=== PATIENT | female | born 1950 | race Caucasian/White ===

== ENCOUNTER 2017-07-04 09:51 | Day surgery (SDC) | payer MEDICARE ==
[~2017-07-04 09:51] MED LIST: ACETAMINOPHEN 1,000 MG/100 ML BTL IV ONE; CELECOXIB 100 MG CAPSULE PO ONE; FAMOTIDINE 20MG TABLET PO ONE; MECLIZINE 25 MG TABLET PO ONE; METOCLOPRAMIDE 10 MG TABLET PO ONE; VANCOMYCIN HCL 1,000 MG in DEXTROSE 5 % IN WATER 250 ML IVPB ONE
[2017-07-04] MEDS ORDERED: FENTANYL PF 100MCG/2ML VIAL IV ONE (09:52)
[2017-07-04] MEDS ORDERED: TRANEXAMIC ACID 1,000 MG/10 ML ML IV ONE (09:52)
[2017-07-04] MEDS ORDERED: LIDOCAINE 2% MDV (20MG/ML) 20ML VIAL IV ONE (09:52)
[2017-07-04] MEDS ORDERED: BUPIVACAINE LIPOSOME 266MG/20ML VIAL IV ONE (09:52)
[2017-07-04] MEDS ORDERED: EPHEDRINE SULFATE 50 MG/ML ML IV ONE (09:52)
[2017-07-04] MEDS ORDERED: DIPHENHYDRAMINE HCL IV 50 MG/ML VIAL IVP ONE (09:52)
[2017-07-04] MEDS ORDERED: PROPOFOL 10 MG/ML VIAL IV ONE (09:52)
[2017-07-04] MEDS ORDERED: VANCOMYCIN HCL 1 GM VIAL IVPB ONE ×2 (09:52)
[2017-07-04] MEDS ORDERED: MIDAZOLAM HCL 2MG/2ML VIAL IV ONE (09:52)
[2017-07-04] MEDS ORDERED: BUPIVACAINE 0.5% W/EPI MPF 30 ML VIAL IVP ONE (09:52)
[2017-07-04 10:37] LABS: ABO GROUP A; ANTIBODY SCREEN NEGATIVE (NEGATIVE); RH TYPE POSITIVE
[2017-07-04] MEDS ORDERED: METOCLOPRAMIDE HCL 10 MG/2 ML VIAL IVP PRN (12:21)
[2017-07-04] MEDS ORDERED: ZOLPIDEM TARTRATE 5 MG TABLET PO PRN (12:21)
[2017-07-04] MEDS ORDERED: AL HYDROX/MAG HYDROX 30ML UD PO PRN (12:21)
[2017-07-04] MEDS ORDERED: BISACODYL 10 MG SUPP RC PRN (12:21)
[2017-07-04] MEDS ORDERED: HYDROCODONE/APAP 7.5/325MG TABLET PO PRN ×2 (12:21)
[2017-07-04] MEDS ORDERED: HYDROCODONE/APAP 5/325MG TABLET PO PRN (12:21)
[2017-07-04] MEDS ORDERED: MORPHINE SULFATE 5 MG/ML PFS IVP PRN ×4 (12:21)
[2017-07-04] MEDS ORDERED: KETOROLAC 30 MG/ML VIAL IVP PRN ×2 (12:21)
[2017-07-04] MEDS ORDERED: ACETAMINOPHEN W/ CODEINE 300MG/30MG TABLET PO PRN ×2 (12:21)
[2017-07-04] MEDS ORDERED: HYDROMORPHONE HCL 1 MG/ML SYRINGE IM PRN (12:21)
[2017-07-04] MEDS ORDERED: ACETAMINOPHEN 325 MG TAB PO PRN (12:21)
[2017-07-04] MEDS ORDERED: ONDANSETRON HCL IV 4 MG/2 ML VIAL IVP PRN (12:21)
[2017-07-04] MEDS ORDERED: MAGNESIUM HYDROXIDE 30 ML UDC PO PRN (12:21)
[2017-07-04] MEDS ORDERED: TRAMADOL HCL 50 MG TABLET PO PRN ×2 (12:21)
[2017-07-04] MEDS ORDERED: ACETAMINOPHEN W/ CODEINE 300MG/60MG TABLET PO PRN ×2 (12:21)
[2017-07-04] MEDS ORDERED: HYDROMORPHONE HCL 2 MG/ML VIAL IM PRN (12:21)
[2017-07-04] MEDS ORDERED: PROMETHAZINE HCL 12.5 MG in 0.9 % SODIUM CHLORIDE 100ML 50 ML IVPB PRN (12:21)
[2017-07-04] MEDS ORDERED: DIPHENHYDRAMINE HCL 25 MG CAPSULE PO PRN (12:21)
[2017-07-04] MEDS ORDERED: NALOXONE 0.4 MG/1 ML VIAL IVP PRN (12:21)
[2017-07-04 12:35] LABS: URINE APPEARANCE CLEAR; URINE BILIRUBIN SMALL (NEGATIVE); URINE BLOOD NEGATIVE (NEGATIVE); URINE COLOR YELLOW; URINE GLUCOSE (UA) NEGATIVE (NEGATIVE); URINE KETONE TRACE (NEGATIVE); URINE LEUKOCYTE ESTERASE NEGATIVE (NEGATIVE); URINE NITRITE NEGATIVE (NEGATIVE); URINE PROTEIN TRACE (NEGATIVE); URINE UROBILINOGEN 0.2 E.U./dL (0.20 - 1.00)
[2017-07-04] MEDS: VANCOMYCIN HCL 1,000 MG in DEXTROSE 5 % IN WATER 250 ML IVPB SCH ×4 (14:50→23:07)
[2017-07-04] MEDS: DEXTROSE 5 % AND 0.9 % NACL 1,000 ML IV PRN ×2 (15:00→23:08)
--- NOTE | 2017-07-04 16:37 | Rehab Evaluation ---
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 PMH - GI Hx Gastrointestinal Disorders Yes Hx Gastroesophageal Reflux Yes Hx Weight Loss/Weight Gain Yes: 90 lb wt loss over last 1 1/2 years Comment: diet and exercise PMH - Hx Genitourinary Disorders No Comment: S/P menopause partial yst PMH - Endocrine Hx Endocrine Disorders No PMH - Musculoskeletal Hx Musculoskeletal Disorders Yes Hx Arthritis Yes: RA and OA PMH - Psych Hx Psychiatric Problems Yes Hx Depression Yes: 3 yrs ago with of spouse PMH - Hematology/Oncology Hx Hematology/Oncology Yes Disorders Hx Anemia Yes: has had iron infusions Social History: Detail (The patient lives alone in an apartment complex. She does not have any stairs to enter, as she uses the elevator. She says that her bathroom has an elevated toilet seat, tub/shower combo, and has grab bars throughout the bathroom. She will be utilizing a 4WW for ambulation when she returns home.) - Time With Patient Total Time Spent With Patient (Min): 30 Treatment Procedures: Detail (PT Initial Evaluation) Objective Data - Pain Pain Present: No Pain Intensity: 0 Pain Scale Used: Numeric (1 - 10) - Mental Status Patient Orientation: Oriented x3 - ROM Within normal limits (Not formally tested, but was able to move joints throughout functional movements assessed.) - Strength/Tone Within normal limits (Not formally tested, but the patient was able to complete functional movements and transfers independently.) - Bed Mobility Independent (Supine to sit - independent Scooting in bed - Independent) - Transfers Independent (Sit to stand/stand to sit - Independent Toilet Transfer - Independent, but required verbal cues for reaching for grab bars and utilizing walker to aid in turning toward the toilet.) - Balance Balance Sitting: Good Balance Standing: Good - Gait Detail (The patient used a 4WW with WBAT on L, and was able to ambulate 54 ft. x 2 with supervision for safety. The patient exhibited decreased knee flexion during L swing phase. The patient required verbal cues to decrease her speed while ambulating.) Therapy Assessment - Therapy Assessment Detail (The patient showed independence with transfers and bed mobility. She required supervision for ambulation, but required verbal cues to decrease her speed. The patient was given her HEP and was instructed to complete them again this evening, as long she did not have increased pain.) Patient Education - Patient Education Teaching Topic: Exercise/Activity Response: Return Demonstration, Verbalize Understanding Teaching Method: Discussion, Demonstration Teaching Recipient: Patient Barriers To Learning: None Problem List - Problem List Physical Therapy Problem List: Detail (1) Decreased Strength and ROM on L LE to be expected following surgery 2) Decreased weight bearing on L LE during gait) Goals - Goals Physical Therapy Goals: 1) Patient will be able to safely operate 4WW (i.e. able to lock and unlock when appropriate). 2) The patient will exhibit safety precautions with sit to stand transfers. Prognosis - Prognosis Good Plan - Plan Physical Therapy Plan: The patient will be seen 1-2 times per day for gait training and LE strengthening exercises.
[2017-07-04] MEDS: FOLIC ACID 1 MG TABLET PO SCH (17:38)
[2017-07-04] MEDS: LORATADINE 10 MG TABLET PO SCH (17:38)
[2017-07-04] MEDS: HYDROCODONE/APAP 5/325MG TABLET PO PRN (21:22)
[2017-07-04] MEDS: DOCUSATE SODIUM 100 MG CAPSULE PO SCH (21:22)
[2017-07-04] MEDS: FERROUS SULFATE 325 MG TAB PO SCH (21:22)
--- NOTE | 2017-07-04 22:44 | Operative Note ---
DATE OF SURGERY: 07/04/2017 PREOPERATIVE DIAGNOSIS: End-stage left knee arthrosis POSTOPERATIVE DIAGNOSIS: End-stage left knee arthrosis. PROCEDURE: Left total knee arthroplasty. SURGEON: Zafar Cooper M.D. Anesthesia: Spinal, Yusuf Steel CRNA. Complications: None. Blood Loss: Minimal. Tourniquet Time: Approximately 60 minutes. Operative Findings: Very tiny knee and small components. [id number] arthrosis with erosions. Severe osteoporosis. Components Placed: 2 gram Vancomycin, cement, [employer] Journey II Oxinium size 3 femoral component, size 2 tibial baseplate, an 11 mm thick tibial with poly insert, and a 26 mm cemented patellar component. INDICATIONS FOR OPERATION: This is a 66-year-old female who has persistent pain and dysfunction in her knee for several years and failed nonoperative treatment is scheduled for the procedure above. I explained the risks and benefits with her in detail for diagnosis and procedures including but not limited to, infection, nerve injury, vessel injury, persistent pain, numbness and tingling in the knee, periprosthetic fracture, need for resection of arthroplasty should the components become infected or loosened, nerve injury, vessel injury, blood clot, need for anticoagulation to prevent blood clots, and the risks associated with medications and all of her questions were answered. The rehab and healing course were outlined. She agreed to the procedure. PROCEDURE: The patient was brought to the O.R. and placed in the supine position. Spinal anesthesia induced and her left lower extremity was prepped and draped in sterile fashion. Left knee was prepped again with ChloraPrep after it was draped. Intraoperative time-out was performed. The knee was injected with 0.5% Marcaine with Epinephrine. The leg was exsanguinated with an Esmarch. The knee was flexed and the tourniquet inflated to 250 mmHg pressure. Next, the skin and subcutaneous tissue was dissected down. I Incised the capsule medially around the medial border of the of the patella to the tibial tubercle. I incised the vastus medialis in line with its fibers in a mid vastus approach. I partially resected the retropatellar fat pad, elevated the capsule subperiosteally and medially and dissected the knee. She had [id number] in the medial compartment. Predominate knee arthrosis also in patella and lateral. Next, we drilled an intercondylar drill hole and inserted the intramedullary guide connor with 6 degree cutting block, aligned the distal femoral condyles, pinned in a +2 mm position, and cut the distal femoral condyles. Next, attention was turned to place the sizing jig on the distal femur, sized it to be right on size 2 to 3. We did not have a 2 available. 3 was the smallest available and we will plan on using that. Trough the previously placed pinholes, we placed the 5-in1 cutting jig. We dialed in the anterior cut so it would come out flush without notching. We cut that and it was good on flush cut. Next, we cut the remaining chamfer cuts in the usual fashion. Next, we placed a size 3 trial femoral component, centered it, pinned it, removed osteophytes off the periphery, inserted a resection collet, and then reamed out and box osteotomed out the cruciate bone block. Next, she had severely osteoporotic bone and very soft, very dilated trabecular pattern of soft bone. Next, we placed the axial alignment jig in the tibia. After we exposed that, we seated the spikes in the intertubercular groove two fingerbreadths distally off the anterior tibial cortex. We referenced again with the drop connor, centered on the tibial anatomic axis, and cut the tibia. Next, we removed osteophytes from the posterior femoral condyles, checked flexion and extension gaps. We sized up to basically a size 11. This allowed for 2 to 3 mm of varus valgus laxity in flexion and extension. Overall alignment cuts in extension was in anatomic valgus orientation with alignment connor centered on the hip joint and ankle joint. Next with the knee back into flexion. We sized the tibial baseplate to a size 2 and replaced all trial components. I set the rotation of the tibial baseplate again in extension using the alignment connor centered on the hip joint and ankle joint. Marked with electrocautery zhu on the anterior tibial cortex off the laser zhu on the tibial baseplate. Next, attention was turned to the patella. We measured the patella as a very small thin patella is expected. Therefore, we only cut a few millimeters off of bone using the cutting jig. We cut about 2 to 3 mm off and we are going to try that. If it is to high, I can repair the capsule and then we would do a release or cut more. However, we did do that and it fit nicely and we had good adequate soft tissue apposition. With the size to be 26, we medialized as much as possible and drilled three peg holes and then placed the trial patellar component, did a trial range of motion, and mixed cement. The patella tracked nicely handsfree, had full extension and flexion to 134 degrees and again symmetric flexion and extension gaps. Next, we placed a bone plug in the femoral canal hole and irrigated the bony surface copiously with pulse lavage and antibiotic solution. We then seated the tibial baseplate at the previously placed zhu, pinned it in place, and reamed out and keel punched the keel hole. Next, we changed gloves, brought in a clean sheet and copiously irrigated all surfaces with pulse lavage and antibiotic solution. We pre-coated both surfaces and impacted down the tibial component and then the femoral component and clamped down the patella component and removed excess cement. We placed a trial tibial poly liner. Once cement was hardened, we took the knee in flexion. We distracted the knee with bone hook and sponge, removed excess cement off the edge of the components and recesses. I injected around the capsule and medial and lateral periosteum with 0.5% Marcaine with Epinephrine, 2 grams tranexamic acid mixture , and Exparel and then inserted the real tibial poly insert and verified it was interlocked medially and laterally and final range of motion was the same. Next, I irrigated again. I closed the capsule in flexion using running #2 Quill. We closed the skin deep with 2-0 Vicryl and gregory, injected the wound again with 0.5% Marcaine with Epinephrine. A sterile dressing was applied, BLANCO wrap, and Zipline. The patient tolerated the procedure well. No intraoperative complications. All sponge, needle, and blade counts correct. Recovery stable, neurovascularly intact. She will be discharged likely tomorrow and follow-up in two weeks. CC: Dr. Jerson Sawyer, III JOB NUMBER [id number] [facility]
[2017-07-05] MEDS: HYDROCODONE/APAP 5/325MG TABLET PO PRN (05:28)
[2017-07-05 07:10] LABS: HEMATOCRIT 33.7 % (35.0-47.0); HEMOGLOBIN 10.7 gm/dl (11.6-16.0)
[2017-07-05] MEDS: FOLIC ACID 1 MG TABLET PO SCH ×2 (09:08→09:12)
[2017-07-05] MEDS: FERROUS SULFATE 325 MG TAB PO SCH (09:08)
[2017-07-05] MEDS: LORATADINE 10 MG TABLET PO SCH (09:08)
[2017-07-05] MEDS: DOCUSATE SODIUM 100 MG CAPSULE PO SCH (09:09)
--- NOTE | 2017-07-05 09:59 | Physical Therapy Tx Note ---
Physical Therapy Tx Note - Treatment Note Tolerated: Good Total Time Spent With Patient: 15 Physical Therapy Tx Note: Detail (The patient was up in chair when PT arrived. The patient reports she has been completing her HEP. The patient used proper technique with sit to and from stand transfer. The patient ambulated independently with 4 WW walker WBAT on the L LE, the patient was able to lock her breaks , however required verbal cues as a reminder. Respiratory therapist measured O2 sat. level which dropped to 83 with ambulation. Patient was put on O2 at rest. Reviewed with patient the importance of locking her breaks and unlocking breaks. The patient declined ambulating on stairs. The patient was able to verbalize proper technique. The patient has no stairs at home.) Physical Therapy Problem List: Detail (1) Decreased Strength and ROM on L LE to be expected following surgery 2) Decreased weight bearing on L LE during gait) Physical Therapy Goals: 1) Patient will be able to safely operate 4WW (i.e. able to lock and unlock when appropriate). 2) The patient will exhibit safety precautions with sit to stand transfers. Physical Therapy Plan: Inpatient PT goals have been met , the patient is discharged from inpatient PT. The patient is to receive Home Care PT.
[2017-07-05] MEDS ORDERED: CELECOXIB 100 MG CAPSULE PO SCH (10:00)
[2017-07-05] MEDS ORDERED: RIVAROXABAN 10 MG TABLET PO SCH (10:00)
--- NOTE | 2017-07-05 10:05 | Rehab Evaluation ---
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 PMH - GI Hx Gastrointestinal Disorders Yes Hx Gastroesophageal Reflux Yes Hx Weight Loss/Weight Gain Yes: 90 lb wt loss over last 1 1/2 years Comment: diet and exercise PMH - Hx Genitourinary Disorders No Comment: S/P menopause partial yst PMH - Endocrine Hx Endocrine Disorders No PMH - Musculoskeletal Hx Musculoskeletal Disorders Yes Hx Arthritis Yes: RA and OA PMH - Psych Hx Psychiatric Problems Yes Hx Depression Yes: 3 yrs ago with of spouse PMH - Hematology/Oncology Hx Hematology/Oncology Yes Disorders Hx Anemia Yes: has had iron infusions Premorbid Status: Detail (Pt lives alone in a 4th floor apartment with an elevator. She has a tub/shower combination with grab bars and she usually stands to shower but she has a commode that will fit in the tub if needed. She has an elevated toilet with grab bars. Prior to surgery she was Ind with all self cares, meal prep, laundry and home mgmt. She has a 4 wheeled walker, cane , wheelchair, wharf operator and commode.) Social History: Detail (Supportive sisters and friends.) Precautions: [place], Fall - Time With Patient Total Time Spent With Patient (Min): 35 Treatment Procedures: Detail (OT eval low complexity) Subjective Information - Subjective Information Per Patient Objective Data - Pain Pain Present: Yes (-07/16) - Mental Status Patient Orientation: Oriented x3 - Visual Perception Appears within normal limits for therapeutic activities - ROM Within normal limits (Venkatesh UE AROM WNL) - Strength/Tone Within normal limits (Venkatesh UE strength WNL) - Coordination Appears within normal limits for therapeutic activities - Bed Mobility Independent (Ind with supine to sit) - Transfers Independent (Ind with sit to stand from a variety of surfaces.) - Balance Balance Sitting: Good Balance Standing: Good - Sensation Intact - Gait Detail (Pt ambulating in room with 4 wheeled walker Indly.) - ADL's/IADL's Detail (Pt able to demonstrate Ind with total body dressing using modified dressing techniques. Reviewed shower safety and IADL modifications including laundry and meal prep. Pt verbalized understanding and reports having a good support system to help her.) Therapy Assessment - Therapy Assessment Detail (Pt is safe and Ind with dressing and functional mobility.) Problem List - Problem List Physical Therapy Problem List: Detail (1) Decreased Strength and ROM on L LE to be expected following surgery 2) Decreased weight bearing on L LE during gait) Occupational Therapy Problem List: Detail (No current OT problems identified.) Goals - Goals Physical Therapy Goals: 1) Patient will be able to safely operate 4WW (i.e. able to lock and unlock when appropriate). 2) The patient will exhibit safety precautions with sit to stand transfers. Occupational Therapy Goals: No current OT goals identified. Prognosis - Prognosis Good Plan - Plan Physical Therapy Plan: The patient will be seen 1-2 times per day for gait training and LE strengthening exercises. Occupational Therapy Plan: No further IP OT recommended. Thank you for this referral.
[2017-07-05] MEDS: VANCOMYCIN HCL 1,000 MG in DEXTROSE 5 % IN WATER 250 ML IVPB SCH ×2 (10:48)
== END 2017-07-05 12:00 | disposition home health service (06) ==
LOC: SUR 09:51 → EDSTATUS 12:00 → MEDSURG 14:30 → SUR 07-05 12:00
PROVIDERS: ATTEND Orthopaedic Surgery
DX: M17.12 Unilateral primary osteoarthritis, left knee (principal); M81.0 Age-related osteoporosis without current pathological fracture
CPT/HCPCS: 85018; 85014; 81003; 86900; 86901; 86850; 27447; 01402; J1885; J2405; J3370; J3010; C9290; J3490; G8978; G8979 ×2; G8980; G8987; G8988; G8989; 97165; 97530; J1200; J7042; J7060

== ENCOUNTER 2017-08-01 15:00 | Inpatient (IN) | payer MEDICARE ==
[2017-08-08] MEDS ORDERED: ACETAMINOPHEN 1,000 MG/100 ML BTL IV ONE (06:00)
[2017-08-08] MEDS ORDERED: CELECOXIB 100 MG CAPSULE PO ONE (06:00)
[2017-08-08] MEDS ORDERED: METOCLOPRAMIDE 10 MG TABLET PO ONE (06:00)
[2017-08-08] MEDS ORDERED: FAMOTIDINE 20MG TABLET PO ONE (06:00)
[2017-08-08] MEDS ORDERED: VANCOMYCIN HCL 1,000 MG in DEXTROSE 5 % IN WATER 250 ML IVPB ONE ×2 (06:00)
[2017-08-08] MEDS ORDERED: MECLIZINE 25 MG TABLET PO ONE (06:00)
[2017-08-08 10:22] LABS: ABO GROUP A; ANTIBODY SCREEN NEGATIVE (NEGATIVE); RH TYPE POSITIVE
[2017-08-08] MEDS ORDERED: KETOROLAC 30 MG/ML VIAL IVP PRN ×2 (11:03)
[2017-08-08] MEDS ORDERED: MAGNESIUM HYDROXIDE 30 ML UDC PO PRN (11:03)
[2017-08-08] MEDS ORDERED: MORPHINE SULFATE 5 MG/ML PFS IVP PRN ×4 (11:03)
[2017-08-08] MEDS ORDERED: METOCLOPRAMIDE HCL 10 MG/2 ML VIAL IVP PRN (11:03)
[2017-08-08] MEDS ORDERED: ACETAMINOPHEN 325 MG TAB PO PRN (11:03)
[2017-08-08] MEDS ORDERED: PROMETHAZINE HCL 12.5 MG in 0.9 % SODIUM CHLORIDE 100ML 50 ML IVPB PRN (11:03)
[2017-08-08] MEDS ORDERED: ACETAMINOPHEN W/ CODEINE 300MG/60MG TABLET PO PRN ×2 (11:03)
[2017-08-08] MEDS ORDERED: HYDROMORPHONE HCL 2 MG/ML VIAL IM PRN ×2 (11:03)
[2017-08-08] MEDS ORDERED: DIPHENHYDRAMINE HCL 25 MG CAPSULE PO PRN (11:03)
[2017-08-08] MEDS ORDERED: ONDANSETRON HCL IV 4 MG/2 ML VIAL IVP PRN (11:03)
[2017-08-08] MEDS ORDERED: AL HYDROX/MAG HYDROX 30ML UD PO PRN (11:03)
[2017-08-08] MEDS ORDERED: NALOXONE 0.4 MG/1 ML VIAL IVP PRN (11:03)
[2017-08-08] MEDS ORDERED: TRAMADOL HCL 50 MG TABLET PO PRN ×2 (11:03)
[2017-08-08] MEDS ORDERED: BISACODYL 10 MG SUPP RC PRN (11:03)
[2017-08-08] MEDS ORDERED: HYDROCODONE/APAP 7.5/325MG TABLET PO PRN (11:03)
[2017-08-08] MEDS ORDERED: ACETAMINOPHEN W/ CODEINE 300MG/30MG TABLET PO PRN ×2 (11:03)
[2017-08-08] MEDS ORDERED: HYDROCODONE/APAP 5/325MG TABLET PO PRN (11:03)
[2017-08-08] MEDS ORDERED: ZOLPIDEM TARTRATE 5 MG TABLET PO PRN (11:03)
[2017-08-08] MEDS ORDERED: TRANEXAMIC ACID 1,000 MG/10 ML ML IV ONE (14:00)
[2017-08-08] MEDS ORDERED: FENTANYL PF 100MCG/2ML VIAL IV ONE (14:00)
[2017-08-08] MEDS ORDERED: ONDANSETRON HCL IV 4 MG/2 ML VIAL IVP ONE (14:00)
[2017-08-08] MEDS ORDERED: MIDAZOLAM HCL 2MG/2ML VIAL IV ONE (14:00)
[2017-08-08] MEDS ORDERED: VANCOMYCIN HCL 1 GM VIAL IVPB ONE (14:00)
[2017-08-08] MEDS ORDERED: HYDROMORPHONE HCL 2 MG/ML VIAL IV ONE (14:00)
[2017-08-08] MEDS ORDERED: BUPIVACAINE LIPOSOME 266MG/20ML VIAL IV ONE (14:00)
[2017-08-08] MEDS ORDERED: PROPOFOL 10 MG/ML VIAL IV ONE (14:00)
[2017-08-08] MEDS ORDERED: BUPIVACAINE 0.5% W/EPI MPF 30 ML VIAL IVP ONE (14:00)
[2017-08-08] MEDS ORDERED: DEXTROSE 5 % AND 0.9 % NACL 1,000 ML IV PRN ×2 (15:22→15:45)
--- NOTE | 2017-08-08 17:15 | Rehab Evaluation ---
Patient Information - Patient Information Diagnosis: Failed TKA Femoral Component Bone Insufficiency Ordered Treatment: PT Evaluate and Treat Status: Initial Evaluation Surgery: Yes (L TKA Revision) Past Medical/Surgical Hx: PAST MEDICAL/SURGICAL HISTORY Past Surgical History LTKA 07-04-2017 tonsils 8 ear surgeries bladder sx at age 16 c section x's 2 oral sx PMH - Respiratory Hx Respiratory Disorders No PMH - Cardiovascular Hx Cardiovascular Disorders Yes Hx Edema Yes: left leg Exercise Tolerance Poor PMH - Neuro Hx Neurological Disorders Yes Hx Dizziness Yes: occassionally with ear infection Comment: 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 PMH - GI Hx Gastrointestinal Disorders Yes Hx Gastroesophageal Reflux Yes Hx Weight Loss/Weight Gain Yes: 90 lb wt loss over last 1 1/2 years Comment: diet and exercise PMH - Hx Genitourinary Disorders No Comment: S/P menopause partial yst PMH - Endocrine Hx Endocrine Disorders No PMH - Musculoskeletal Hx Musculoskeletal Disorders Yes Hx Arthritis Yes: RA and OA PMH - Psych Hx Psychiatric Problems Yes Hx Depression Yes: 3 yrs ago with of spouse PMH - Hematology/Oncology Hx Hematology/Oncology Yes Disorders Hx Anemia Yes: has had iron infusions Social History: Detail (The patient lives alone in an apartment complex with no steps to enter. She lives on the second floor, but uses an elevator to get to her level. The patient's bathroom has a tub/shower combo, and an elevated toilet seat. The bathroom has grab bars throughout. She will be using a 4WW for ambulation.) Precautions: Other (WBAT on L) - Time With Patient Total Time Spent With Patient (Min): 30 Treatment Procedures: Detail (PT Initial Evaluation) Objective Data - Pain Pain Present: No Pain Intensity: 0 Pain Scale Used: Numeric (1 - 10) - Mental Status Patient Orientation: Oriented x3 - ROM Within normal limits (Not formally assessed, but was able to move joints throughout functional ROM. Had Limited L Knee ROM as expected s/p L TKA/Revision ) - Strength/Tone Within normal limits (Not formally tested, but was able to complete functional movements) - Bed Mobility Independent (Independent with scooting up and down and to the middle of the bed. She was able to transfer from supine to sit independently.) - Transfers Independent (Sit to stand - Independent. Stand to sit - Independent.) - Balance Balance Sitting: Good (No LOB while sitting at bedside) Balance Standing: Good (No LOB with static standing or gait activities.) - Gait Detail (The patient was able to ambulate with 4WW and supervision from her bedside to the door in her room using WBAT on the L. The patient had complaints of fatigue, so further ambulation was not completed.) Therapy Assessment - Therapy Assessment Detail (The patient was independent with bed mobility and transfers. She required supervision for ambulation, but would benefit from further distance to assess skill for household distances.) Problem List - Problem List Physical Therapy Problem List: Detail (1) Decreased ROM and strength as expected s/p L TKA Revision 2) Not able to ambulate household distances) Goals - Goals Physical Therapy Goals: 1) The patient will be able to ambulate household distances to show ability to function within the home safely. 2) The patient will be independent with HEP to increase ROM and strength in L Knee Prognosis - Prognosis Good Plan - Plan Physical Therapy Plan: The patient will be seen 1-2x/day M-F for gait training and HEP instruction.
[2017-08-08] MEDS: HYDROCODONE/APAP 5/325MG TABLET PO PRN (18:01)
[2017-08-08] MEDS: FERROUS SULFATE 325 MG TAB PO SCH (21:09)
[2017-08-08] MEDS: DOCUSATE SODIUM 100 MG CAPSULE PO SCH (21:09)
[2017-08-08] MEDS: VANCOMYCIN HCL 1,000 MG in DEXTROSE 5 % IN WATER 250 ML IVPB SCH ×2 (21:55)
[2017-08-08] MEDS ORDERED: VANCOMYCIN HCL 1,000 MG in DEXTROSE 5 % IN WATER 250 ML IVPB SCH ×2 (22:00)
--- NOTE | 2017-08-08 23:12 | Operative Note ---
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 PROCEDURE: Revision of femoral component, long stem. SURGEON: Zafar Cooper M.D. Anesthesia: LMA. ASSEMBLER INSTALLER STRUCTURES. Complications: None. Blood Loss: Minimal. Tourniquet Time: 70 minutes. Operative Findings: Completely disintegrated lateral femoral condyle with complete impaction and failure of the femoral component including loose anteflexed and collapsed laterally. Her bone was gravel-like with no normal structure here in the lateral condyle. There was still about half of the medial condyle remaining for some support. The tibial component was well-fixed and still in good alignment. Therefore, we planned on revision of the femoral component only. INDICATIONS FOR OPERATION: This is a 66-year-old female who is about three weeks status post left total knee arthroplasty. She did well initially, however , she followed up in my office in about two weeks after. It was noted that her femoral component was completely collapsed. She is a long-term rheumatoid arthritic on Methotrexate, Plaquenil, and steroids in the past and she had a complete failure of the femoral component at this time. It was collapsed in the valgus. In the condylar bone, it was absent laterally. I explained that she would need immediate revision of the femoral component. The tibial component appeared to be still well-fixed and in good alignment. Therefore, we planned for femoral component revision only. Even though she had a significant defect in the condyles of the femur, to revise this completely, such as a tumor-type complete distal femur replacement type components, would require complete resection of the tibial component as well to place the entire condylar revision system in the knee. Therefore, due to the fact that the tibial component was still well-fixed and in good alignment, it was felt to proceed with the lesser invasive and less risky of the two revisions, so isolated revision of the femoral component only with a long stem cemented with plan to cement the femoral canal. I explained all the risks and benefits to her in detail for diagnosis and procedures including but not limited to, infection, nerve injury, vessel injury, persistent pain, numbness and tingling in the knee, and the fact that this was a revision surgery and she has high risk for infection, nerve injury, vessel injury, blood clot, and need for further procedures and all of her questions were answered. The rehab courses were outlined. Also nonunion, malunion, hardware failure, need for hardware removal at a later date, periprosthetic fracture, need for resection arthroplasty, or further revisions if the components become infected or loosened, need for anticoagulation, blood clots and risks associated with these medications and need for further procedures and all of her questions were answered and rehab courses were outlined and she agreed to proceed. PROCEDURE: The patient was brought to the O.R. and placed in the supine position for proper surgery. Anesthesia induced and the lower extremity and knee were prepped and draped in sterile fashion. The left knee was prepped again with ChloraPrep after it was draped. Intraoperative time-out was performed. The knee was infiltrated with 0.5% Marcaine with Epinephrine. The leg was exsanguinated with an Esmarch. The knee was flexed and the tourniquet inflated to 250 mmHg pressure. Next, the skin and subcutaneous tissue was dissected down to the capsule. I Incised the capsule medially around the medial border of the of the patella to the tibial tubercle. I incised the vastus medialis in line with its fibers in a mid vastus approach. I partially resected the retropatellar fat pad, elevated the capsule subperiosteally and medially, flexed the knee and inspected around the femoral component. It was completely loose and it was mobile immediately with gentle pressure on it. We then inserted an osteotome underneath the femoral component and removed it in its entirety without difficulty with some fragmented coarse, gravel-like bone from the femoral condyle coming off with it laterally. Some femoral condyle bone was still present medially, again the same quality. Next, we debrided around the knee, checked the femoral canal, and opened up the femoral canal and started reaming with a 9 to a 10, 11, to a 12 mm reamer. We stopped there. We planned on using 160 length in this very tiny female short femur and this would be adequate length, particularly completely cemented in the femoral canal. We then inserted the distal over-reamer and over-reamed that for the shaft of the revision Legion femoral component and then trialed out the revision component with the 160 stem and basically placed a 15 mm step insert distal posteriorly L-shaped laterally to fill in as much condyle as we could here. However, there was still a defect in the lateral condyle area and we placed a posterior 5 mm and this translated the femoral component nicely more posteriorly to allow the flange to be close to the anterior femoral cortex without being offset too far anteriorly for patellar tracking. I trialed that and it had a nice fit. I took provisional x-rays with the C-arm and had good fit. The stem was of good diameter and fit in the canal with the sizes that we used. When trialed to a 15 mm poly insert and this allowed for flexion to 140 and 2 to 3 mm of varus laxity in flexion and extension. Overall alignment in extension was anatomic in valgus orientation. Next, this was the size we used and then opened up the real components, assembled them in place. We mixed cement with 3 gm of Vancomycin. We irrigated copiously with pulse lavage and antibiotic solution. We changed gloves, irrigated the femoral canal and placed the cement restricted distally and checked the cement with a cement gun to the opening of the canal. We pre-coated both surfaces and impacted down the entire assembly of the femoral component with the spaces and the stem, locking the stem in place with two set screws previously in neutral version until it was flush with our distal femur cut on the medial condyle. With the excess cement, we filled in the remainder of the lateral femoral condyle area packing it in up underneath the anterior flange and distal femoral spacers contouring it to the cortex laterally. Once cement hardened, we then irrigated copiously, injected the knee around the periphery, and then inserted the real tibial poly insert and verified it was interlocking medially and laterally with final range of motion still the same. We did pie-crusting lateral release of the patella so it would track easier with less tension laterally. We Irrigated copiously and closed the capsule and vastus medialis split with running #2 Quill suture, again in full extension in about 5 degrees of full extension with flexion to 130 to 140 and the patella tracked nicely hands free. We irrigated again, Closed the skin deep with 2-0 Vicryl and gregory, injected the wound with 10 mg 0.5% Marcaine with Epinephrine and Exparel mixture. A sterile dressing was applied, BLANCO wrap. Post-op x-ray showed good fit and orientation of components. The patient tolerated the procedure well. No intraoperative complications. All sponge, needle, and blade counts correct. Recovery stable, neurovascularly intact. She will be discharged to the Floor, likely discharged in three days to rehab, [place]. CC: Dr. Jerson Sawyer, III JOB NUMBER: [id number] MTDD
[2017-08-09] MEDS: HYDROCODONE/APAP 5/325MG TABLET PO PRN ×3 (03:08→21:39)
[2017-08-09 06:57] LABS: HEMATOCRIT 33.6 % (35.0-47.0); HEMOGLOBIN 10.5 gm/dl (11.6-16.0)
--- NOTE | 2017-08-09 07:22 | RADIOLOGY REPORT ---
EXAM: LEFT KNEE HISTORY: POSTOP. TECHNIQUE: Two views of the left knee were obtained. Comparison: None. Encounter: Initial. FINDINGS: Status post total left knee arthroplasty with patellar resurfacing. Soft tissue gas and swelling is likely postoperative in nature. Osteopenia. IMPRESSION: STATUS POST TOTAL LEFT KNEE ARTHROPLASTY. NO GROSS COMPLICATING PROCESS. JOB NUMBER: [id number] MTDD
--- NOTE | 2017-08-09 10:12 | Physical Therapy Tx Note ---
Physical Therapy Tx Note - Treatment Note Tolerated: Good Total Time Spent With Patient: 20 Physical Therapy Tx Note: Detail (The patient was laying in bed upon arrival. The patient was instructed in her HEP, which included: Quad Sets, Glute. Sets, Hamstring Sets/Heel Slides, and Ankle Pumps. She was instructed to complete 10 reps of each exercise 1-2x/day. The patient was then able to transfer independently from supine to sit and sit to stand for ambulation. She was able to ambulate from her room to the [facility] and back (about 100 feet total). She used a 4WW, was WBAT on L and required supervision only during ambulation. The patient has passed all inpatient skills and does not require further inpatient PT at this time. She would benefit from continued Home/Outpatient PT to return to full function.) Physical Therapy Problem List: Detail (1) Decreased ROM and strength as expected s/p L TKA Revision 2) Not able to ambulate household distances) Physical Therapy Goals: 1) The patient will be able to ambulate household distances to show ability to function within the home safely - MET. 2) The patient will be independent with HEP to increase ROM and strength in L Knee - MET Prognosis: Good Physical Therapy Plan: All inpatient PT goals have been met, no further inpatient PT needed at this time. She would benefit from continued Home/ Outpatient PT to return to full function.
[2017-08-09] MEDS: LORATADINE 10 MG TABLET PO SCH (11:44)
[2017-08-09] MEDS: FERROUS SULFATE 325 MG TAB PO SCH ×2 (11:44→22:26)
[2017-08-09] MEDS: CELECOXIB 100 MG CAPSULE PO SCH (11:44)
[2017-08-09] MEDS: DOCUSATE SODIUM 100 MG CAPSULE PO SCH ×2 (11:45→22:26)
[2017-08-09] MEDS: RIVAROXABAN 10 MG TABLET PO SCH (11:45)
[2017-08-09] MEDS: VANCOMYCIN HCL 1,000 MG in DEXTROSE 5 % IN WATER 250 ML IVPB SCH ×2 (11:45)
[2017-08-09] MEDS: FOLIC ACID 1 MG TABLET PO SCH (11:45)
--- NOTE | 2017-08-09 12:24 | Rehab Evaluation ---
Patient Information - Patient Information Diagnosis: Failed TKA Femoral Component Bone Insufficiency Ordered Treatment: OT Evaluate and Treat Status: Initial Evaluation Surgery: Yes (L TKA Revision) Past Medical/Surgical Hx: PAST MEDICAL/SURGICAL HISTORY Past Surgical History LTKA 07-04-2017 tonsils 8 ear surgeries bladder sx at age 16 c section x's 2 oral sx PMH - Respiratory Hx Respiratory Disorders No PMH - Cardiovascular Hx Cardiovascular Disorders Yes Hx Edema Yes: left leg Exercise Tolerance Poor PMH - Neuro Hx Neurological Disorders Yes Hx Dizziness Yes: occassionally with ear infection Comment: 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 was fairly Ind. with I/ADL's with some assistance from friends and nieces (such as grocery shopping).) Social History: Detail (The patient lives alone in an apartment complex with no steps to enter. She lives on the second floor, but uses an elevator to get to her level. The patient's bathroom has a tub/shower combo, and 3-in-1 commode. The bathroom has grab bars throughout. Pt. plans to sponge bathe during her recovery, and has friends and nieces that will be visiting to assist as needed. She will be using a 4WW for ambulation.) Precautions: Lerna, Other (WBAT on L) - Time With Patient Total Time Spent With Patient (Min): 25 Subjective Information - Subjective Information Per Patient (Pt. believes she is d/c to [facility] before returning home. Educ. provided to check with director of social work (who was coming in the room after OT session) to confirm d/c plans.) Objective Data - Mental Status Patient Orientation: Oriented x3 - Visual Perception Appears within normal limits for therapeutic activities - ROM Within normal limits (BUE WFL; pt. has RA. Pt. is able to reach above head, behind head (i.e. to brush/wash hair), and behind her back (i.e. tuck in shirt or fasten bra).) - Strength/Tone Not within normal limits (Pt. has RA. BUE strength is WFL for her small stature. 4-/5 MMT. Pt. states does not interfere with ability to use walker or push up on hands during transfers/bed mobility.) - Coordination Appears within normal limits for therapeutic activities - Bed Mobility Independent - Transfers Independent - Balance Balance Sitting: Good Balance Standing: Fair - Sensation Intact (BUE lt touch in tact fingertips.) - ADL's/IADL's Detail (Pt. demo. ability to dress BLE (elastic waist pants and undergarment) Ind. sit/stand at EOB. Pt. also used toilet Ind. Educ. provided in adaptive dressing techniques and use of bulb packer; pt. recalled well from previous sx, and did not need bulb packer to dress at this time.) Therapy Assessment - Therapy Assessment Detail (In-pt. OT services not recommended at this time. Pt. demo. ability to dress and toilet Ind. Pt. may benefit from in-home caregiver services during her recovery to assist with I/ADL's such as grocery shopping, meal prep, etc. during. Pt. has a positive support system and friends and nieces who can assist if needed. Pt. has knowledge of AE, where to obtain if needed, and adaptive dressing techniques.) Patient Education - Patient Education Teaching Topic: Equipment Use Response: Return Demonstration, Verbalize Understanding Teaching Method: Discussion, Demonstration Teaching Recipient: Patient Barriers To Learning: None Problem List - Problem List Physical Therapy Problem List: Detail (1) Decreased ROM and strength as expected s/p L TKA Revision 2) Not able to ambulate household distances) Goals - Goals Physical Therapy Goals: 1) The patient will be able to ambulate household distances to show ability to function within the home safely - MET. 2) The patient will be independent with HEP to increase ROM and strength in L Knee - MET Prognosis - Prognosis Good Plan - Plan Physical Therapy Plan: All inpatient PT goals have been met, no further inpatient PT needed at this time. She would benefit from continued Home/ Outpatient PT to return to full function. Occupational Therapy Plan: D/C from in-pt. OT services. Educ. was provided to call rehab dept. if Q's arise when return home.
[2017-08-10 07:25] LABS: HEMATOCRIT 33.1 % (35.0-47.0); HEMOGLOBIN 10.5 gm/dl (11.6-16.0)
[2017-08-10] MEDS: RIVAROXABAN 10 MG TABLET PO SCH (09:23)
[2017-08-10] MEDS: FOLIC ACID 1 MG TABLET PO SCH (09:24)
[2017-08-10] MEDS: FERROUS SULFATE 325 MG TAB PO SCH ×2 (09:24→21:05)
[2017-08-10] MEDS: HYDROCODONE/APAP 7.5/325MG TABLET PO PRN ×2 (09:24→20:28)
[2017-08-10] MEDS: LORATADINE 10 MG TABLET PO SCH (09:24)
[2017-08-10] MEDS: DOCUSATE SODIUM 100 MG CAPSULE PO SCH ×2 (09:24→21:05)
[2017-08-10] MEDS: CELECOXIB 100 MG CAPSULE PO SCH (09:24)
[2017-08-10] MEDS: HYDROCODONE/APAP 5/325MG TABLET PO PRN (16:32)
[2017-08-11] MEDS: HYDROCODONE/APAP 5/325MG TABLET PO PRN ×2 (06:20→09:04)
--- NOTE | 2017-08-11 07:37 | RADIOLOGY REPORT ---
EXAM: PORTABLE CHEST HISTORY: DIFFICULTY BREATHING. TECHNIQUE: A portable AP view of the chest was obtained. Comparison: None. FINDINGS: The heart size is normal. Mild atheromatous change of the thoracic aorta. Osteopenia. COPD. Calcified granuloma right lung base. The lungs are otherwise clear. No pneumothorax. IMPRESSION: COPD. NO ACUTE CARDIOPULMONARY PROCESS. JOB NUMBER: [id number] MTDD
[2017-08-11] MEDS: CELECOXIB 100 MG CAPSULE PO SCH (10:05)
[2017-08-11] MEDS: LORATADINE 10 MG TABLET PO SCH (10:06)
[2017-08-11] MEDS: FOLIC ACID 1 MG TABLET PO SCH (10:06)
[2017-08-11] MEDS: DOCUSATE SODIUM 100 MG CAPSULE PO SCH (10:06)
[2017-08-11] MEDS: RIVAROXABAN 10 MG TABLET PO SCH (10:06)
[2017-08-11] MEDS: FERROUS SULFATE 325 MG TAB PO SCH (10:06)
--- NOTE | 2017-08-16 15:24 | Discharge Summary ---
HISTORY: This is a 66-year-old female who is a few weeks status post total knee arthroplasty, severe rheumatoid arthritic, and her femoral components collapsed completely failed, the condyle bone basically disintegrated and she scheduled for revision of the femoral component. HOSPITAL COURSE: The patient admitted the date of procedure and tolerated it well. Postop, she was afebrile, vital signs are stable, and neurovascularly intact. Her dressings were clean, dry, and intact. She had Xarelto for DVT prophylaxis, pain medication, antibiotics, and sent to Floor for total knee repair protocol. Hospital course was uncomplicated. She had acute asymptomatic postop blood loss anemia. Hemoglobin was 10.5 on postop day #1 and 10.5 postop day #2. She did well with therapy and eventually discharged and decided to go home. Postop day # 3 with home PT with [facility]. Continue her preadmission medication plus sleeping pill, pain pill, iron, and Xarelto for a total of two weeks postoperative. cc: Jerson Sawyer M.D. JOB NUMBER: [id number] MTDD
== END 2017-08-11 12:40 | disposition home or self-care (01) | DRG 468 ==
LOC: MEDSURG 08-08 08:24 → UNDOADMIN 08-08 08:24
PROVIDERS: ADMIT Orthopaedic Surgery; ATTEND Orthopaedic Surgery
PROC: 0SRU0J9 Replacement of Left Knee Joint, Femoral Surface with Synthetic Substitute, Cemented, Open Approach (ICD-10-PCS; 2017-08-08)
PROC: 0SPU0JZ Removal of Synthetic Substitute from Left Knee Joint, Femoral Surface, Open Approach (ICD-10-PCS; principal; 2017-08-08 11:00)
DX: T84.093A Other mechanical complication of internal left knee prosthesis, initial encounter (principal); M06.9 Rheumatoid arthritis, unspecified
CPT/HCPCS: 71045; 76000; 85014; 85018; 86850; 86900; 86901; 94620; 94760; 94761; 97165; 97530; C1776; J1885; J2405; J7042; J7060